=== PATIENT | male | born 1970 | race Caucasian/White ===

== ENCOUNTER 2020-04-14 14:05 | Observation (INO) | payer BC, OTHER ==
[2020-04-14] MEDS ORDERED: SODIUM CHLORIDE 0.9% 1,000 ML IV STA (14:33)
[2020-04-14] MEDS ORDERED: ONDANSETRON 4 MG/2 ML VIAL IVP STA (14:33)
--- NOTE | 2020-04-14 14:33 | ED ---
General Adult HPI - General Chief complaint: Chest Pain Stated complaint: High Blood Pressure Time Seen by Provider: 04/14/20 14:22 Source: patient Mode of arrival: ambulatory Limitations: no limitations - History of Present Illness Initial comments: Dictation was produced using [employer] dictation software. please excuse any grammatical, word or spelling errors. This patient was cared for during a federal and state declared state of emergency secondary to Covid 19 Chief Complaint: 50-year-old male presents today with 2 days of substernal chest pressure elevated blood pressure and diarrhea. History of Present Illness: 50-year-old male for the last 2 days she's been experiencing the affirmation symptoms. He went to the urgent care yesterday and was evaluated. He is told that he was dehydrated and is causing his elevated blood pressure. He had urinalysis performed and was told that he had protein in his urine. Patient states that he does have substernal pressure and epigastric pressure that is worse postprandially. He does experience nausea and diarrhea. His emesis and diarrhea as nonbilious not bloody. He denies any constitutional symptoms. He has history of heart attack. Patient states that the pain does not rate his jaw shoulders or extremities. No associated diaphoresis. He has not been on any recent antibiotics. No recent travel. No concerns of possible food poisoning. The ROS documented in this emergency department record has been reviewed and confirmed by me. Those systems with pertinent positive or negative responses have been documented in the HPI. All other systems are other negative and/or noncontributory. PHYSICAL EXAM: General Impression: Alert and oriented x3, acute distress secondary to nausea HEENT: Normocephalic atraumatic, extra-ocular movements intact, pupils equal and reactive to light bilaterally, mucous membranes moist. Cardiovascular: Heart regular rate and rhythm Chest: Able to complete full sentences, no retractions, no tachypnea Abdomen: abdomen soft, non-tender, non-distended, no organomegaly Musculoskeletal: Pulses present and equal in all extremities, no peripheral edema Motor: no focal deficits noted Neurological: CN II-XII grossly intact, no focal motor or sensory deficits noted Skin: Intact with no visualized rashes Psych: Normal affect and mood ED course: 50-year-old male presents with GI symptoms, nausea vomiting, diarrhea signs upon arrival shows blood pressure 190 10/08/2013, rest of vital signs within acceptable limits. Patient has multiple symptoms involving multiple organs. He does not describe chest symptoms to suggest dissection. Denies that the pain as sharp radiating to his extremities. As I have any focal neurologic deficits of the extremities or strokelike symptoms. States that it's pressure in the substernal epigastric area without any onset of diaphoresis. He also has accompanying diarrhea and nausea. His EKGs benign does not show any signs of infarction or ischemia.He is given a GI cocktail with slight improvement of his symptoms. Laboratory evaluation obtained. CBC unremarkable. Coag panel is negative. Metabolic panel shows no acute processes. Urinalysis shows no acute processes. First troponin is negative. Patient observed in the emergency Department with slight improvement of his substernal symptoms. Still continues to be hypertensive. Disposition options were discussed with patient. He is agreeable for admission to cardiac labs for serial troponins and cardiology consultation. At this point patient's not having any symptoms of hypertensive emergency. Given 1 dose of labetalol EKG interpretation: Ventricular rate 73, normal sinus rhythm,. Interval 156, QRS 108, QTC 407. No SD prolongation, no QTC prolongation, no ST or T-wave changes noted. EKG compared to 06/04/2015 showing no changes. Overall, this EKG is unremarkable - Related Data Home Medications Medication Instructions Recorded Confirmed Cyclobenzaprine [Flexeril] 10 mg PO TID PRN 06/03/15 04/14/20 metFORMIN HCL 1,000 mg PO BID 06/03/15 04/14/20 Cholecalciferol [Vitamin D3 (25 1,000 unit PO DAILY 04/14/20 04/14/20 Mcg = 1000 Iu)] Fenofibrate Nanocrystallized 145 mg PO HS 04/14/20 04/14/20 [Fenofibrate] HYDROcodone/APAP 7.5-325MG [[place] 1 tab PO TID PRN 04/14/20 04/14/20 7.5-325] Losartan Potassium [Cozaar] 100 mg PO DAILY 04/14/20 04/14/20 Magnesium Oxide [Magox 400] 400 mg PO DAILY 04/14/20 04/14/20 Simvastatin [Zocor] 20 mg PO HS 04/14/20 04/14/20 Previous Rx's Medication Instructions Recorded Nitroglycerin Sl Tabs [Nitrostat] 0.4 mg SUBLINGUAL Q5M PRN #30 tab 06/06/15 Allergies Allergy/AdvReac Type Severity Reaction Status Date / Time aspartame Allergy Unknown Verified 04/14/20 16:10 Sulfa (Sulfonamide Allergy Nausea Verified 04/14/20 16:10 Antibiotics) Review of Systems ROS Statement: Those systems with pertinent positive or pertinent negative responses have been documented in the HPI. ROS Other: All systems not noted in ROS Statement are negative. 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 OTHER PAST SX HX INCLUDES: tendon REPAIRS X5 RT BICEP, LT 3RD AND 5TH DIGIT LT HAND, LT GREAT TOE, BENIGN TUMOR REMOVED RT submandibular area Past Anesthesia/Blood Transfusion Reactions: No Reported Reaction Past Psychological History: No Psychological Hx Reported Smoking Status: Current some day smoker Past Alcohol Use History: None Reported Past Drug Use History: None Reported - Past Family History Father Family Medical History: Diabetes Mellitus, Hypertension Mother Family Medical History: Diabetes Mellitus, Hypertension Brother(s) Family Medical History: Myocardial Infarction ([place]) ( at the age 51) Additional Family Medical History / Comment(s): HAD [place] AT AGE 52 General Exam Limitations: no limitations Course Vital Signs 04/14/20 04/14/20 14:14 16:11 Temperature 99.2 F 98.3 F Pulse Rate 83 72 Respiratory 18 18 Rate Blood Pressure 194/114 167/85 O2 Sat by Pulse 100 97 Oximetry Medical Decision Making - Lab Data Result diagrams: 04/14/20 14:42 04/14/20 14:42 Lab Results 04/14/20 04/14/20 04/14/20 Range/Units 14:42 14:42 14:42 WBC 6.7 (3.8-10.6) k/uL RBC 5.60 (4.30-5.90) m/uL Hgb 17.5 (13.0-17.5) gm/dL Hct 50.9 (39.0-53.0) % MCV 91.0 (80.0-100.0) fL MCH 31.2 (25.0-35.0) pg MCHC 34.3 (31.0-37.0) g/dL RDW 12.8 (11.5-15.5) % Plt Count 165 (150-450) k/uL Neutrophils % 57 % Lymphocytes % 30 % Monocytes % 7 % Eosinophils % 3 % Basophils % 2 % Neutrophils # 3.8 (1.3-7.7) k/uL Lymphocytes # 2.0 (1.0-4.8) k/uL Monocytes # 0.5 (0-1.0) k/uL Eosinophils # 0.2 (0-0.7) k/uL Basophils # 0.1 (0-0.2) k/uL PT 9.7 (9.0-12.0) sec INR 0.9 (<1.2) APTT 22.6 (22.0-30.0) sec Sodium 134 L (137-145) mmol/L Potassium 4.3 (3.5-5.1) mmol/L Chloride 103 (98-107) mmol/L Carbon Dioxide 21 L (22-30) mmol/L Anion Gap 10 mmol/L BUN 20 (9-20) mg/dL Creatinine 1.08 (0.66-1.25) mg/dL Est GFR (CKD-EPI)AfAm >90 (>60 ml/min/1.73 sqM) Est GFR (CKD-EPI)NonAf 78 (>60 ml/min/1.73 sqM) Glucose 209 H (74-99) mg/dL Calcium 10.5 H (8.4-10.2) mg/dL Magnesium 1.5 L (1.6-2.3) mg/dL Total Bilirubin 0.6 (0.2-1.3) mg/dL AST 40 (17-59) U/L ALT 42 (4-49) U/L Alkaline Phosphatase 49 (38-126) U/L Troponin I (0.000-0.034) ng/mL Total Protein 7.9 (6.3-8.2) g/dL Albumin 4.9 (3.5-5.0) g/dL Lipase 250 (23-300) U/L Urine Color Urine Appearance (Clear) Urine pH (5.0-8.0) Ur Specific [place] (1.001-1.035) Urine Protein (Negative) Urine Glucose (UA) (Negative) Urine Ketones (Negative) Urine Blood (Negative) Urine Nitrite (Negative) Urine Bilirubin (Negative) Urine Urobilinogen (<2.0) mg/dL Ur Leukocyte Esterase (Negative) Urine RBC (0-5) /hpf Urine WBC (0-5) /hpf 04/14/20 04/14/20 Range/Units 14:42 16:11 WBC (3.8-10.6) k/uL RBC (4.30-5.90) m/uL Hgb (13.0-17.5) gm/dL Hct (39.0-53.0) % MCV (80.0-100.0) fL MCH (25.0-35.0) pg MCHC (31.0-37.0) g/dL RDW (11.5-15.5) % Plt Count (150-450) k/uL Neutrophils % % Lymphocytes % % Monocytes % % Eosinophils % % Basophils % % Neutrophils # (1.3-7.7) k/uL Lymphocytes # (1.0-4.8) k/uL Monocytes # (0-1.0) k/uL Eosinophils # (0-0.7) k/uL Basophils # (0-0.2) k/uL PT (9.0-12.0) sec INR (<1.2) APTT (22.0-30.0) sec Sodium (137-145) mmol/L Potassium (3.5-5.1) mmol/L Chloride (98-107) mmol/L Carbon Dioxide (22-30) mmol/L Anion Gap mmol/L BUN (9-20) mg/dL Creatinine (0.66-1.25) mg/dL Est GFR (CKD-EPI)AfAm (>60 ml/min/1.73 sqM) Est GFR (CKD-EPI)NonAf (>60 ml/min/1.73 sqM) Glucose (74-99) mg/dL Calcium (8.4-10.2) mg/dL Magnesium (1.6-2.3) mg/dL Total Bilirubin (0.2-1.3) mg/dL AST (17-59) U/L ALT (4-49) U/L Alkaline Phosphatase (38-126) U/L Troponin I <0.012 (0.000-0.034) ng/mL Total Protein (6.3-8.2) g/dL Albumin (3.5-5.0) g/dL Lipase (23-300) U/L Urine Color Yellow Urine Appearance Clear (Clear) Urine pH 6.5 (5.0-8.0) Ur Specific [place] 1.016 (1.001-1.035) Urine Protein 2+ H (Negative) Urine Glucose (UA) Trace H (Negative) Urine Ketones Negative (Negative) Urine Blood Negative (Negative) Urine Nitrite Negative (Negative) Urine Bilirubin Negative (Negative) Urine Urobilinogen <2.0 (<2.0) mg/dL Ur Leukocyte Esterase Negative (Negative) Urine RBC <1 (0-5) /hpf Urine WBC <1 (0-5) /hpf Disposition Clinical Impression: Chest pain Disposition: ADMITTED IP TO THIS HOSP Condition: Fair Referrals: Chance Ware DO [Primary Care Provider] - 1-2 days Decision Time: 16:31
[2020-04-14 14:57] LABS: Basophils # (A) 0.1 k/uL (0-0.2); Basophils % (A) 2 %; Eosinophils # (A) 0.2 k/uL (0-0.7); Eosinophils % (A) 3 %; HCT 50.9 % (39.0-53.0); HGB 17.5 gm/dL (13.0-17.5); Lymphocytes % (A) 30 %; MCH 31.2 pg (25.0-35.0); MCHC 34.3 g/dL (31.0-37.0); Mean Platelet Volume 9.9; Monocytes # (A) 0.5 k/uL (0-1.0); Monocytes % (A) 7 %; Neutrophils # (A) 3.8 k/uL (1.3-7.7); Neutrophils % (A) 57 %; Platelet Count 165 k/uL (150-450); RDW 12.8 % (11.5-15.5); WBC 6.7 k/uL (3.8-10.6)
[2020-04-14 15:07] LABS: ALT 42 U/L (4-49); AST 40 U/L (17-59); African American GFR (CKD) >90 (>60 ml/min/1.73 sqM); Albumin 4.9 g/dL (3.5-5.0); Alkaline Phosphatase 49 U/L (38-126); Anion Gap 10 mmol/L; Blood Urea Nitrogen 20 mg/dL (9-20); Calcium 10.5 mg/dL (8.4-10.2); Carbon Dioxide 21 mmol/L (22-30); Chloride 103 mmol/L (98-107); Glucose 209 mg/dL (74-99); Magnesium 1.5 mg/dL (1.6-2.3); Non-African American GFR(CKD) 78 (>60 ml/min/1.73 sqM); Potassium 4.3 mmol/L (3.5-5.1); Sodium 134 mmol/L (137-145); Total Bilirubin 0.6 mg/dL (0.2-1.3); Total Protein 7.9 g/dL (6.3-8.2)
[2020-04-14] MEDS ORDERED: MAG HYDROX/AL HYDROX/SIMETH 30 ML, HYOSCYAMINE ELIXIR 10 ML, LIDOCAINE VISCOUS 2% 10 ML PO STA ×3 (15:10)
--- NOTE | 2020-04-14 15:23 | XR ---
EXAMINATION TYPE: XR abdomen acute w cxr DATE OF EXAM: 04/14/2020 CLINICAL HISTORY: Abdominal pain and nausea. Chest pain. TECHNIQUE: Single frontal view of chest is obtained. Supine and upright views of the abdomen are acq uired. COMPARISON: None. FINDINGS: EKG leads are present. The lungs are grossly clear without pleural effusion or pneumothorax. Cardiac silhouette size appears within normal limits. Ectatic thoracic aorta noted. Osseous structures are i ntact. Some paucity of bowel gas. Gas noted in nondistended stomach bubble. Scattered gas seen in nondisten ded small and large bowel loops. Scattered bilateral small pelvic phleboliths. Visualized osseous str uctures are intact. No pneumoperitoneum IMPRESSION: 1. No acute pulmonary process. 2. Overall nonspecific but likely nonobstructive bowel gas pattern.
[2020-04-14 15:30] LABS: INR 0.9 (<1.2); Partial Thromboplastin Time 22.6 sec (22.0-30.0); Prothrombin Time 9.7 sec (9.0-12.0)
[2020-04-14] MEDS ORDERED: MAGNESIUM OXIDE 400 MG TAB PO STA (15:46)
[2020-04-14 16:23] LABS: Appearance,Urine Clear (Clear); Bilirubin,Urine Negative (Negative); Blood,Urine Negative (Negative); Color,Urine Yellow; Glucose,Urine (UA) Trace (Negative); Ketones,Urine Negative (Negative); Leukocyte Esterase,Urine Negative (Negative); Nitrite,Urine Negative (Negative); PH, Urine 6.5 (5.0-8.0); Protein,Urine 2+ (Negative); RBC,Urine <1 /hpf (0-5); Specific Gravity,Urine 1.016 (1.001-1.035); Urobilinogen,Urine <2.0 mg/dL (<2.0); WBC,Urine <1 /hpf (0-5)
[2020-04-14] MEDS ORDERED: LABETALOL 5 MG/ML VIAL MDV IVP STA (16:29)
[2020-04-14] MEDS ORDERED: ASPIRIN 81 MG PO STA (16:31)
[2020-04-14] MEDS ORDERED: cloNIDine HCL 0.1 MG TAB PO STA (17:36)
[2020-04-14] MEDS ORDERED: NITROGLYCERIN SL TABS 0.4 MG TAB SUBLINGUAL PRN (19:35)
[2020-04-14] MEDS ORDERED: CYCLOBENZAPRINE 10 MG TAB PO PRN (19:35)
[2020-04-14] MEDS ORDERED: ENALAPRILAT 1.25 MG/ML 1 ML VIAL IVP PRN (19:39)
--- NOTE | 2020-04-14 19:47 | P.HPIM ---
History of Present Illness H&P Date: 04/14/20 Chief Complaint: Chest pain, urgent hypertension, CAD, type 2 diabetes, hype rlipidemia 50-year-old mildly overweight male one of Dr. Ware patient with past medical history of CAD post PCI and stent placement of the LAD back 2014 who is known to have history of type 2 diabetes, hypertension, hyperlipidemia, chronic kidney disease who developed to have significant elevated blood pressure since Monday did not feel well ended up going to the urgent care on Monday his blood pressure was quite bit high was recommended to go see his primary care where was seen and have his blood pressure tested and was over 190 patient was advised to come to the emergency department was seen today at [facility] with chest tightness and pressure in significantly elevated blood pressure despite clonidine and his home meds his blood pressure did not subtle down patient CK with troponin was normal patient was admitted to the hospital for the above problem. Review of Systems CONSTITUTIONAL: Well-developed no acute respiratory distress. EYES: No icterus sclerae, no conjunctivitis. EARS, NOSE, MOUTH, THROAT, and FACE: No sore throat, lymphadenopathy, carotid bruits or deformity. RESPIRATORY: No SOB cough or wheezes. CARDIOVASCULAR: No CP, Palpitation, PND, Orthopnea, or angina, mild tightness and pressure.. GASTROINTESTINAL: No Abd pain, Nausea or vomiting, no Diarrhea or constipation, No GI Bleed, no distention or masses. GENITOURINARY: Negative for Hematuria or UTI, no kidney stones. INTEGUMENT/BREAST: Negative for any muscular injury with mild osteoarthritis.. HEMATOLOGIC/LYMPHATIC: Negative for bleed or purpura. MUSCULOSKELTAL: Negative for Myalgia or arthralgia. NEURLOGICAL: No LOC, Sz or syncope, blurred vision dizziness or abnormality.. BEHAVIORAL/PSYCH: Negative. ENDOCRINE: Negative. Social history: He smokes half pack a day for last 25 years, no I can't abuse, his work in maintenance at the [employer], his and lives with his . Family history: Patient father is living in his 86 had [place] post CABG, mother is living in her 84 without any major medical problem. Patient has 1 brother was living and well and one child with no major medical problem. Past Medical History Past Medical History: Diabetes Mellitus, Hypertension, Rheumatoid Arthritis (RA) Additional Past Medical History / Comment(s): 06/03/15 STEMI- 1 stent placed. History of Any Multi-Drug Resistant Organisms: None Reported Past Surgical History: Appendectomy Additional Past Surgical History / Comment(s): 06/03/15 HEART CATH WITH STENT TO LAD. OTHER PAST SX HX INCLUDES: tendon REPAIRS X5 RT BICEP, tendon sx 4TH AND 5TH DIGIT LT HAND, tendon sx GREAT TOE, BENIGN TUMOR REMOVED RT submandibular area. Past Anesthesia/Blood Transfusion Reactions: No Reported Reaction Past Psychological History: No Psychological Hx Reported Additional Psychological History / Comment(s): . Smoking Status: Current some day smoker Past Alcohol Use History: None Reported Past Drug Use History: None Reported - Past Family History Father Family Medical History: Diabetes Mellitus, Hypertension Mother Family Medical History: Diabetes Mellitus, Hypertension Brother(s) Family Medical History: Myocardial Infarction ([place]) Additional Family Medical History / Comment(s): HAD [place] AT AGE 52 Medications and Allergies Home Medications Medication Instructions Recorded Confirmed Type Cyclobenzaprine [Flexeril] 10 mg PO TID PRN 06/03/15 04/14/20 History metFORMIN HCL 1,000 mg PO BID 06/03/15 04/14/20 History Nitroglycerin Sl Tabs [Nitrostat] 0.4 mg SUBLINGUAL Q5M PRN #30 tab 06/06/15 04/14/20 Rx Cholecalciferol [Vitamin D3 (25 1,000 unit PO DAILY 04/14/20 04/14/20 History Mcg = 1000 Iu)] Fenofibrate Nanocrystallized 145 mg PO HS 04/14/20 04/14/20 History [Fenofibrate] HYDROcodone/APAP 7.5-325MG [[place] 1 tab PO TID PRN 04/14/20 04/14/20 History 7.5-325] Losartan Potassium [Cozaar] 100 mg PO DAILY 04/14/20 04/14/20 History Magnesium Oxide [Magox 400] 400 mg PO DAILY 04/14/20 04/14/20 History Simvastatin [Zocor] 20 mg PO HS 04/14/20 04/14/20 History Allergies Allergy/AdvReac Type Severity Reaction Status Date / Time aspartame Allergy Unknown Verified 04/14/20 16:10 Sulfa (Sulfonamide Allergy Nausea Verified 04/14/20 16:10 Antibiotics) Physical Exam Vitals: Vital Signs Temp Pulse Pulse Resp BP BP Pulse Ox 04/14/20 18:45 97.8 F 64 16 194/125 97 04/14/20 18:21 64 18 178/92 98 04/14/20 17:41 65 18 192/115 98 04/14/20 17:00 80 18 166/106 04/14/20 16:11 98.3 F 72 18 167/85 97 04/14/20 14:14 99.2 F 83 18 194/114 100 Intake and Output 04/14/20 04/14/20 04/14/20 06:59 14:59 22:59 Other: Weight 115.666 kg 115.666 kg General Appearance: Alert, cooperative, no distress, appears stated age. Significantly overweight Neck HEENT: Supple, no lymphadenopathy, no thyroid enlargement, no carotid bruits. Lungs: Clear to auscultation without crackles or wheezes no rhonchi, no deformity. Chest Wall: Chest wall normal expansion with deep inspiration no tenderness and no deformity was found on exam, no costochondral pain or discomfort. Heart: Regular rate and rhythm, S1, S2 normal, no murmur, rub or gallop. Back: Symmetric, no curvature, ROM normal, no CVA tenderness. Abdomen: Soft, non-tender, bowel sounds active all four quadrants, no masses, no organomegaly. Extremities: Extremities normal, atraumatic, no cyanosis or edema. Pulses: 2+ and symmetric. Skin: Skin color, texture, tugor normal, no rashes or lesions. Neurologic: Alert oriented x3 cranial nerves II through XII intact, no motor deficit, no abnormal balance or gait. Results CBC & Chem 7: 04/14/20 14:42 04/14/20 14:42 Labs: Abnormal Lab Results - Last 24 Hours (Table) 04/14/20 04/14/20 Range/Units 14:42 16:11 Sodium 134 L (137-145) mmol/L Carbon Dioxide 21 L (22-30) mmol/L Glucose 209 H (74-99) mg/dL Calcium 10.5 H (8.4-10.2) mg/dL Magnesium 1.5 L (1.6-2.3) mg/dL Urine Protein 2+ H (Negative) Urine Glucose (UA) Trace H (Negative) Thrombosis Risk Factor Assmnt - DVT/VTE Prophylaxis DVT/VTE Prophylaxis: Mechanical Prophylaxis ordered - Choose All That Apply Any of the Below Risk Factors Present?: Yes Each Factor Represents 1 point: Age 41-60 years, Obesity (BMI >25) Other Risk Factors: No Other congenital or acquired thrombophilia - If yes, enter type in comment: No Thrombosis Risk Factor Assessment Total Risk Factor Score: 2 Thrombosis Risk Factor Assessment Level: Low Risk Assessment and Plan Assessment: 1 atypical chest pain: With known history of heart disease with significant risk factor, patient will be seeing cardiology continue CK with troponin 3 echocardiogram and if any abnormality patient might go for stress test or intervention. 2 noncontrolled urgent hypertension: Will add labetalol 100 mg twice a day hydralazine 25 mg 4 times a day for systolic above 160 Vasotec 2.5 mg every 6 hour for systolic above 160 in the meanwhile continue patient on losartan 100 mg daily patient calcium and magnesium were slightly bit off we will have free cortisol level along with PTH and renal artery ultrasound to exclude the possibility of bilateral renal artery stenosis, pheochromocytoma is not totally excluded urine metanephrine levels can be done. 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 4 type 2 diabetes: Patient is on metformin Accu-Chek with sliding scales c overage and be done. 5 History of rheumatoid arthritis: Patient is not on any medication for it is on [id number] anti-inflammatory agent only. 6 BPH: Watch for any urinary retention. 7 chronic severe neuropathy: Patient again is not using any neuropathy medication for that he is using hydrocodone subtle down his pain. 8 hyperlipidemia: Patient to continue simvastatin and fenofibrate. 9 GI prophylaxis: Patient will be on Pepcid 20 mg daily. 10 DVT prophylaxis: Patient will be on Venodyne boots and knee-high SAY hose.
[2020-04-14 20:26] LABS: Glucose,Whole Blood 241 mg/dL (75-99)
[2020-04-14] MEDS: LABETALOL 100 MG TAB PO SCH (20:48)
[2020-04-14] MEDS: ATORVASTATIN 10 MG TAB PO SCH (20:48)
[2020-04-14] MEDS: FENOFIBRATE 160 MG TAB PO SCH (20:48)
[2020-04-14] MEDS: HYDROcodone/APAP 7.5-325MG 1 EACH TAB PO PRN (22:10)
--- NOTE | 2020-04-15 07:17 | P.CRDCN ---
History of Present Illness Consult date: 04/15/20 Chief complaint: Elevated blood pressure History of present illness: This is a pleasant 48-year-old gentleman who is known to me from before with known history of coronary artery disease and prior stenting of the left anterior descending artery as well as known intermediate disease involving the left circumflex and also diabetes and hypertension and dyslipidemia presented to the hospital not feeling well. The patient symptoms started this past weekend when he noticed that he's been experiencing symptoms of headache. He noticed that his pressure has been elevated and it was about 180 mmHg systolic at home. He was experiencing only symptoms of headache but no dizziness or lightheadedness and no symptoms of chest pain or chest discomfort nor shortness of breath. No syncope. He noticed that lately his pressure has been creeping up. No change in his blood pressure medications he has been taking the same medications which include losartan at 100 mg by mouth daily. He is not on any beta safia but his heart rate has been in the 60s. The patient states clearly that he was compliant with all of his medications including the losartan. In terms off diet he states clearly that he was not following a low sodium diet but he is trying to. He does not seems to exercise on a regular basis. When he presented to the hospital his pressure has been elevated the patient was restarted on his losartan at home dose which is 100 mg by mouth daily and also he was placed on hydralazine when necessary. The pressure continues to be elevated with an average systolic blood pressure between 150-160 mmHg. His systolic blood pressure ideally should be around 130 mmHg giving his history of coronary artery disease as well as history of cardiomyopathy. The EKG showed sinus rhythm with nonspecific ST and T wave abnormalities. The cardiac enzymes were checked and came in to be unremarkable. The rest of the blood work overall came in to be unremarkable. Again the patient did not have no symptoms of chest pain or chest discomfort. Past Medical History Past Medical History: Diabetes Mellitus, Hypertension, Rheumatoid Arthritis (RA) Additional Past Medical History / Comment(s): 06/03/15 STEMI- 1 stent placed. History of Any Multi-Drug Resistant Organisms: None Reported Past Surgical History: Appendectomy Additional Past Surgical History / Comment(s): 06/03/15 HEART CATH WITH STENT TO LAD. OTHER PAST SX HX INCLUDES: tendon REPAIRS X5 RT BICEP, tendon sx 4TH AND 5TH DIGIT LT HAND, tendon sx GREAT TOE, BENIGN TUMOR REMOVED RT submandibular area. Past Anesthesia/Blood Transfusion Reactions: No Reported Reaction Past Psychological History: No Psychological Hx Reported Additional Psychological History / Comment(s): . Smoking Status: Current some day smoker Past Alcohol Use History: None Reported Past Drug Use History: None Reported - Past Family History Father Family Medical History: Diabetes Mellitus, Hypertension Mother Family Medical History: Diabetes Mellitus, Hypertension Brother(s) Family Medical History: Myocardial Infarction (NC) Additional Family Medical History / Comment(s): HAD NC AT AGE 52 Medications and Allergies Home Medications Medication Instructions Recorded Confirmed Type Cyclobenzaprine [Flexeril] 10 mg PO TID PRN 06/03/15 04/14/20 History metFORMIN HCL 1,000 mg PO BID 06/03/15 04/14/20 History Nitroglycerin Sl Tabs [Nitrostat] 0.4 mg SUBLINGUAL Q5M PRN #30 tab 06/06/15 04/14/20 Rx Cholecalciferol [Vitamin D3 (25 1,000 unit PO DAILY 04/14/20 04/14/20 History Mcg = 1000 Iu)] Fenofibrate Nanocrystallized 145 mg PO HS 04/14/20 04/14/20 History [Fenofibrate] HYDROcodone/APAP 7.5-325MG [[place] 1 tab PO TID PRN 04/14/20 04/14/20 History 7.5-325] Losartan Potassium [Cozaar] 100 mg PO DAILY 04/14/20 04/14/20 History Magnesium Oxide [Magox 400] 400 mg PO DAILY 04/14/20 04/14/20 History Simvastatin [Zocor] 20 mg PO HS 04/14/20 04/14/20 History Allergies Allergy/AdvReac Type Severity Reaction Status Date / Time aspartame Allergy Unknown Verified 04/14/20 16:10 Sulfa (Sulfonamide Allergy Nausea Verified 04/14/20 16:10 Antibiotics) Physical Exam Vitals: Vital Signs Temp Pulse Pulse Resp BP BP BP 04/15/20 06:02 157/89 04/15/20 04:10 97.4 F L 65 15 170/110 04/15/20 00:00 135/86 04/14/20 20:18 97.9 F 71 16 163/85 04/14/20 18:45 97.8 F 64 16 194/125 04/14/20 18:21 64 18 178/92 04/14/20 17:41 65 18 192/115 04/14/20 17:00 80 18 166/106 04/14/20 16:11 98.3 F 72 18 167/85 04/14/20 14:14 99.2 F 83 18 194/114 Pulse Ox 04/15/20 06:02 04/15/20 04:10 99 04/15/20 00:00 04/14/20 20:18 97 04/14/20 18:45 97 04/14/20 18:21 98 04/14/20 17:41 98 04/14/20 17:00 04/14/20 16:11 97 04/14/20 14:14 100 Intake and Output 04/14/20 04/15/20 04/15/20 22:59 06:59 14:59 Other: Voiding Method Toilet Toilet # Voids 1 2 Weight 115.666 kg - Constitutional General appearance: no acute distress - Respiratory Respiratory: bilateral: diminished - Cardiovascular Rhythm: regular Heart sounds: normal: S1, S2 Results 04/14/20 14:42 04/14/20 14:42 Cardiac Enzymes 04/14/20 04/14/20 04/14/20 Range/Units 14:42 14:42 17:36 AST 40 (17-59) U/L Troponin I <0.012 <0.012 (0.000-0.034) ng/mL 04/14/20 Range/Units 20:38 AST (17-59) U/L Troponin I <0.012 (0.000-0.034) ng/mL Coagulation 04/14/20 Range/Units 14:42 PT 9.7 (9.0-12.0) sec APTT 22.6 (22.0-30.0) sec CBC 04/14/20 Range/Units 14:42 WBC 6.7 (3.8-10.6) k/uL RBC 5.60 (4.30-5.90) m/uL Hgb 17.5 (13.0-17.5) gm/dL Hct 50.9 (39.0-53.0) % Plt Count 165 (150-450) k/uL Comprehensive Metabolic Panel 04/14/20 Range/Units 14:42 Sodium 134 L (137-145) mmol/L Potassium 4.3 (3.5-5.1) mmol/L Chloride 103 (98-107) mmol/L Carbon Dioxide 21 L (22-30) mmol/L BUN 20 (9-20) mg/dL Creatinine 1.08 (0.66-1.25) mg/dL Glucose 209 H (74-99) mg/dL Calcium 10.5 H (8.4-10.2) mg/dL AST 40 (17-59) U/L ALT 42 (4-49) U/L Alkaline Phosphatase 49 (38-126) U/L Total Protein 7.9 (6.3-8.2) g/dL Albumin 4.9 (3.5-5.0) g/dL Current Medications Generic Name Dose Route Start Last Admin Trade Name Freq PRN Reason Stop Dose Admin Hydrocodone Bitart/Acetaminophen 1 each 04/14/20 19:35 04/14/20 22:10 Hydrocodone/Apap 7.5-325mg 1 Each Tab PO 1 each TID PRN Administration Pain Aspirin 325 mg 04/15/20 09:00 Aspirin 325 Mg Tab PO DAILY [facility] Atorvastatin Calcium 10 mg 04/14/20 21:00 04/14/20 20:48 Atorvastatin 10 Mg Tab PO 10 mg HS VERONIKA Administration Cholecalciferol 1,000 unit 04/15/20 09:00 Cholecalciferol 1,000 Unit Tab PO DAILY [facility] Cyclobenzaprine HCl 10 mg 04/14/20 19:35 Cyclobenzaprine 10 Mg Tab PO TID PRN MUSCLE SPASMS Enalaprilat 2.5 mg 04/14/20 19:39 04/15/20 04:47 Enalaprilat 1.25 Mg/Ml 1 Ml Vial IVP 2.5 mg Q6HR PRN Administration Blood Pressure - High Famotidine 20 mg 04/15/20 09:00 Famotidine 20 Mg Tab PO DAILY [facility] Fenofibrate 160 mg 04/14/20 21:00 04/14/20 20:48 Fenofibrate 160 Mg Tab PO 160 mg HS VERONIKA Administration Hydralazine HCl 25 mg 04/14/20 19:38 Hydralazine Hcl 25 Mg Tab PO QID PRN Blood Pressure - High Labetalol HCl 100 mg 04/14/20 21:00 10/06/20 20:48 Labetalol 100 Mg Tab PO 100 mg BID VERONIKA Administration Losartan Potassium 100 mg 04/15/20 09:00 Losartan 50 Mg Tab PO DAILY VERONIKA Magnesium Oxide 400 mg 04/15/20 09:00 Magnesium Oxide 400 Mg Tab PO DAILY VERONIKA Metformin HCl 1,000 mg 04/15/20 07:30 Metformin 500 Mg Tab PO BID-W/MEALS VERONIKA Nitroglycerin 0.4 mg 04/14/20 19:35 Nitroglycerin Sl Tabs 0.4 Mg Tab SUBLINGUAL Q5M PRN Chest Pain Spironolactone 25 mg 04/15/20 09:00 Spironolactone 25 Mg Tab PO DAILY VERONIKA Intake and Output 04/14/20 04/15/20 04/15/20 22:59 06:59 14:59 Other: Voiding Method Toilet Toilet # Voids 1 2 Weight 115.666 kg 04/14/20 14:42 04/14/20 14:42 Assessment and Plan Assessment: Assessment #1 hypertension urgency #2 coronary artery disease and prior stenting of the LAD #3 known cardiomyopathy was EF between 40-45% #4 diabetes type 2 #5 dyslipidemia Plan #1 continue the current dose of losartan #2 consider adding Aldactone at 25 mg by mouth daily to manage the blood pressure as well as for the cardiomyopathy #3 he was counseled regarding the low sodium diet and the importance of follow a good diet and exercise #4 he states clearly that he was compliant with all of his medications including losartan #6 an echocardiogram was ordered we'll follow-up with that #7 no need for any stress test at this point in view of the asymptomatic state #8 follow-up with the patient Thank you for allowing us participate in his care
[2020-04-15 07:43] LABS: Glucose,Whole Blood 221 mg/dL (75-99)
[2020-04-15 07:48] LABS: Basophils % (A) 1 %; Eosinophils # (A) 0.2 k/uL (0-0.7); Eosinophils % (A) 4 %; HCT 47.6 % (39.0-53.0); Lymphocytes # (A) 2.2 k/uL (1.0-4.8); Lymphocytes % (A) 36 %; MCH 30.9 pg (25.0-35.0); MCHC 33.7 g/dL (31.0-37.0); MCV 91.8 fL (80.0-100.0); Mean Platelet Volume 9.9; Monocytes # (A) 0.4 k/uL (0-1.0); Monocytes % (A) 7 %; Neutrophils # (A) 3.1 k/uL (1.3-7.7); Neutrophils % (A) 51 %; Platelet Count 132 k/uL (150-450); RBC 5.18 m/uL (4.30-5.90); RDW 12.9 % (11.5-15.5); WBC 6.1 k/uL (3.8-10.6)
[2020-04-15 08:02] LABS: ALT 43 U/L (4-49); AST 42 U/L (17-59); African American GFR (CKD) >90 (>60 ml/min/1.73 sqM); Albumin 4.4 g/dL (3.5-5.0); Alkaline Phosphatase 46 U/L (38-126); Anion Gap 8 mmol/L; Blood Urea Nitrogen 18 mg/dL (9-20); Calcium 9.6 mg/dL (8.4-10.2); Carbon Dioxide 27 mmol/L (22-30); Chloride 102 mmol/L (98-107); Cholesterol 171 mg/dL (<200); Glucose 202 mg/dL (74-99); HDL Cholesterol 33 mg/dL (40-60); Non-African American GFR(CKD) 84 (>60 ml/min/1.73 sqM); Potassium 4.6 mmol/L (3.5-5.1); Sodium 137 mmol/L (137-145); Total Bilirubin 0.6 mg/dL (0.2-1.3); Total Protein 7.2 g/dL (6.3-8.2)
[2020-04-15] MEDS: ASPIRIN 325 MG TAB PO SCH (08:30)
[2020-04-15] MEDS: LOSARTAN 50 MG TAB PO SCH (08:30)
[2020-04-15] MEDS: SPIRONOLACTONE 25 MG TAB PO SCH (08:32)
[2020-04-15] MEDS: hydrALAZINE HCL 25 MG TAB PO PRN (08:32)
[2020-04-15] MEDS: FAMOTIDINE 20 MG TAB PO SCH (08:32)
[2020-04-15] MEDS: metFORMIN 500 MG TAB PO SCH ×2 (08:32→17:31)
[2020-04-15] MEDS: CHOLECALCIFEROL 1,000 UNIT TAB PO SCH (08:32)
[2020-04-15] MEDS: LABETALOL 100 MG TAB PO SCH (08:32)
[2020-04-15] MEDS: HYDROcodone/APAP 7.5-325MG 1 EACH TAB PO PRN (08:33)
[2020-04-15] MEDS: MAGNESIUM OXIDE 400 MG TAB PO SCH (08:33)
[2020-04-15 09:02] LABS: Triglycerides 591 mg/dL (<150)
[2020-04-15] MEDS ORDERED: LABETALOL 100 MG TAB PO STA (10:03)
[2020-04-15] MEDS: LABETALOL 200 MG TAB PO SCH ×2 (10:03→21:38)
--- NOTE | 2020-04-15 11:02 | P.PN ---
Subjective Progress Note Date: 04/15/20 HISTORY OF PRESENT ILLNESS 50-year-old mildly overweight male one of Dr. Ware patient with past medical history of CAD post PCI and stent placement of the LAD back 2014 who is known to have history of type 2 diabetes, hypertension, hyperlipidemia, chronic kidney disease who developed to have significant elevated blood pressure since Monday did not feel well ended up going to the urgent care on Monday his blood pressure was quite bit high was recommended to go see his primary care where was seen and have his blood pressure tested and was over 190 patient was advised to come to the emergency department was seen today at [facility] with chest tightness and pressure in significantly elevated blood pressure despite clonidine and his home meds his blood pressure did not subtle down patient CK with troponin was normal patient was admitted to the hospital for the above problem. 04/15: This morning, blood pressure remains elevated 167/122. Labetalol will be increased to 200 mg twice daily. Patient has been afebrile, heart rate 64, pulse ox 98% on room air. Repeat CBC, electrolytes renal function are unremarkable. Blood sugar running between 202 and 241. Troponins have been negative. Liver function tests normal. Cortisol level is pending. Parathyroid hormone intact is 22.2. Metanephrines, TSH, catecholamines, hemoglobin A1c are pending. Renal ultrasound ordered to rule out renal artery stenosis. Anticipate probable discharge tomorrow. Patient is also been started on NovoLog scale today. REVIEW OF SYSTEMS CONSTITUTIONAL: Well-developed no acute respiratory distress. No fever. EYES: No icterus sclerae, no conjunctivitis. EARS, NOSE, MOUTH, THROAT, and FACE: No sore throat, lymphadenopathy, carotid bruits or deformity. RESPIRATORY: No SOB cough or wheezes. CARDIOVASCULAR: No CP, Palpitation, PND, Orthopnea, or angina, mild tightness and pressure.. GASTROINTESTINAL: No Abd pain, Nausea or vomiting, no Diarrhea or constipation, No GI Bleed, no distention or masses. GENITOURINARY: Negative for Hematuria or UTI, no kidney stones. INTEGUMENT/BREAST: Negative for any muscular injury with mild osteoarthritis.. HEMATOLOGIC/LYMPHATIC: Negative for bleed or purpura. MUSCULOSKELTAL: Negative for Myalgia or arthralgia. NEURLOGICAL: No LOC, Sz or syncope, blurred vision dizziness or abnormality.. BEHAVIORAL/PSYCH: Negative. ENDOCRINE: Negative. PHYSICAL EXAMINATION Gen: This is a 50-year-old male in no acute distress. HEENT: Head is atraumatic, normocephalic. Pupils equal, round. Sclerae is anicteric. NECK: Supple. No JVD. No lymphadenopathy. No thyromegaly. LUNGS: Clear to auscultation. No wheezes or rhonchi. No intercostal retractions. HEART: Regular rate and rhythm. No murmur. ABDOMEN: Soft. Bowel sounds are present. No masses. No tenderness. EXTREMITIES: No pedal edema. No calf tenderness. NEUROLOGICAL: Patient is awake, alert and oriented x3. Cranial nerves 2 through 12 are grossly intact. ASSESSMENT AND PLAN 1 atypical chest pain: With known history of heart disease with significant risk factor, patient will be seeing cardiology continue CK with troponin 3 echocardiogram and if any abnormality patient might go for stress test or intervention. 2 noncontrolled urgent hypertension. Labetalol increased to 200 mg twice daily, continue losartan 100 mg daily, amlodipine 5 mg daily. PTH and renal artery ultrasound to exclude the possibility of bilateral renal artery stenosis, pheochromocytoma is not totally excluded urine metanephrine levels can be done. 3 CAD: Post PCI and stent placement, patient has not seen his placing judge in years he is off but beta safia still on statin and ARB continue aspirin patien t be seen cardiology echocardiogram will be done at this time patient will need probably stress test. 4 type 2 diabetes uncontrolled with hyperglycemia: Patient is on metformin Accu- Chek with sliding scales coverage and be done. 5 History of rheumatoid arthritis: Patient is not on any medication for it is on [id number] anti-inflammatory agent only. 6 BPH: Watch for any urinary retention. 7 chronic severe neuropathy: Patient again is not using any neuropathy medication for that he is using hydrocodone subtle down his pain. 8 hyperlipidemia: Patient to continue simvastatin and fenofibrate. 9 GI prophylaxis: Patient will be on Pepcid 20 mg daily. 10 DVT prophylaxis: Patient will be on Venodyne boots and knee-high SAY hose. Discharge plan: home in 24 hours. Impression and plan of care have been directed as dictated by the signing physician. Kirsten Mello nurse practitioner acting as scribe for signing physician. Objective - Vital Signs Vital signs: Vital Signs Temp 97.8 F 04/15/20 07:54 Pulse 64 04/15/20 07:54 Resp 16 04/15/20 07:54 BP 167/122 04/15/20 07:54 Pulse Ox 98 04/15/20 07:54 Intake & Output 04/14/20 04/15/20 04/15/20 18:59 06:59 18:59 Weight 115.666 kg Other: Voiding Method Toilet Toilet # Voids 2 1 - Labs CBC & Chem 7: 04/15/20 07:19 04/15/20 07:19 Labs: Abnormal Lab Results - Last 24 Hours (Table) 04/14/20 04/14/20 04/14/20 Range/Units 14:42 16:11 20:25 Plt Count (150-450) k/uL Sodium 134 L (137-145) mmol/L Carbon Dioxide 21 L (22-30) mmol/L Glucose 209 H (74-99) mg/dL POC Glucose (mg/dL) 241 H (75-99) mg/dL Calcium 10.5 H (8.4-10.2) mg/dL Magnesium 1.5 L (1.6-2.3) mg/dL Triglycerides (<150) mg/dL HDL Cholesterol (40-60) mg/dL Urine Protein 2+ H (Negative) Urine Glucose (UA) Trace H (Negative) 04/15/20 04/15/20 04/15/20 Range/Units 07:19 07:19 07:41 Plt Count 132 L (150-450) k/uL Sodium (137-145) mmol/L Carbon Dioxide (22-30) mmol/L Glucose 202 H (74-99) mg/dL POC Glucose (mg/dL) 221 H (75-99) mg/dL Calcium (8.4-10.2) mg/dL Magnesium (1.6-2.3) mg/dL Triglycerides 591 H (<150) mg/dL HDL Cholesterol 33 L (40-60) mg/dL Urine Protein (Negative) Urine Glucose (UA) (Negative)
[2020-04-15] MEDS: amLODIPine 5 MG TAB PO SCH (11:07)
[2020-04-15 11:59] LABS: Glucose,Whole Blood 197 mg/dL (75-99)
[2020-04-15] MEDS: INSULIN ASPART (NovoLOG) 100 UNIT/ML VIAL SQ SCH ×3 (12:34→21:37)
--- NOTE | 2020-04-15 13:27 | US ---
EXAMINATION TYPE: US renal artery duplex complet DATE OF EXAM: 04/15/2020 COMPARISON: NONE CLINICAL HISTORY: uncontrolled HTN, rule out renal artery stenosis. MEASUREMENTS: RENAL SIZE: Rt Kidney: 13.9 x 6.5 x 6.5 cm Lt Kidney: 13.5 x 4.8 x 6.5 cm RESISTANCE INDEX Right: 0.59 Left: 0.60 RA/AO RATIO (< 3.5 ) Right: 1.4 Left: 1.7 RA VELOCITY ( < 180 cm/s) Right: 124 Left: 156 Proximal aorta not seen due to bowel gas, otherwise within normal limits. Small cyst lower lateral le ft renal measures 0.9 x 0.5 x 0.9 cm. No ultrasound evidence for renal artery stenosis. Good upstroke on segmentals at renal hilum. Low resistive waveforms noted throughout. IMPRESSION: No sonographic evidence to suggest renal artery stenosis at this time.
[2020-04-15 16:54] LABS: Glucose,Whole Blood 201 mg/dL (75-99)
[2020-04-15 18:52] LABS: Hemoglobin A1C 9.7 % (4.0-6.0)
--- NOTE | 2020-04-15 19:19 | ECHOF ---
Referral Reason:lvfunction MEASUREMENTS -------- HEIGHT: 172.7 cm WEIGHT: 115.7 kg BP: 159/99 RVIDd: 3.3 cm (< 3.3) IVSd: 1.4 cm (0.6 - 1.1) LVIDd: 4.8 cm (3.9 - 5.3) LVPWd: 1.3 cm (0.6 - 1.1) IVSs: 1.8 cm LVIDs: 3.4 cm LVPWs: 1.9 cm LA Diam: 3.4 cm (2.7 - 3.8) LAESV Index (A-L): 18.25 ml/m Ao Diam: 3.4 cm (2.0 - 3.7) AV Cusp: 2.2 cm (1.5 - 2.6) MV EXCURSION: 13.189 mm (> 18.000) MV EF SLOPE: 68 mm/s (70 - 150) EPSS: 0.7 cm MV E Shan: 0.67 m/s MV DecT: 238 ms MV A Shan: 1.11 m/s MV E/A Ratio: 0.61 FINDINGS -------- Sinus rhythm. This was a technically adequate study. The left ventricular size is normal. There is moderate concentric left ventricular hypertrophy. O verall left ventricular systolic function is normal with, an EF between 60 - 65 %. The right ventricle is normal in size. Normal LA size by volume 22+/-6 ml/m2. The right atrium is normal in size. Interatrial and interventricular septum intact. The aortic valve is trileaflet and appears structurally normal. The mitral valve is normal. The tricuspid valve appears structurally normal. The pulmonic valve was not well visualized. The aortic root size is normal. IVC Not well visulized. There is no pericardial effusion. CONCLUSIONS -------- 1. The left ventricular size is normal. 2. There is moderate concentric left ventricular hypertrophy. 3. Overall left ventricular systolic function is normal with, an EF between 60 - 65 %. 4. The right ventricle is normal in size. 5. Normal LA size by volume 22+/-6 ml/m2. 6. IVC Not well visulized. 7. There is no pericardial effusion. TEMPLE MARKER: Collette Merino RDCS
[2020-04-15 21:35] LABS: Glucose,Whole Blood 209 mg/dL (75-99)
[2020-04-15] MEDS: FENOFIBRATE 160 MG TAB PO SCH (21:37)
[2020-04-15] MEDS: ATORVASTATIN 10 MG TAB PO SCH (21:38)
[2020-04-16 06:48] LABS: Glucose,Whole Blood 176 mg/dL (75-99)
[2020-04-16] MEDS: INSULIN ASPART (NovoLOG) 100 UNIT/ML VIAL SQ SCH ×4 (06:51→20:19)
[2020-04-16] MEDS: metFORMIN 500 MG TAB PO SCH ×2 (06:51→18:05)
--- NOTE | 2020-04-16 07:43 | P.PN ---
Subjective Progress Note Date: 04/16/20 Principal diagnosis: Hypertension urgency This is a pleasant 50-year-old gentleman was coronary artery disease and prior revascularization as well as diabetes and hypertension and dyslipidemia was admitted to the hospital yesterday was hypertension urgency. He was started on Aldactone. The echocardiogram revealed mildly impaired LV function. The patient did not have any symptoms of chest pain or chest discomfort He was seen today. He remains asymptomatic from the cardiac standpoint. The blood pressure has improved significantly with an average systolic pressure about 140 mmHg. From a cardiovascular standpoint he can be discharged home and he to be seen as an outpatient. Objective - Vital Signs Vital signs: Vital Signs Temp 97.8 F 04/16/20 03:54 Pulse 64 04/16/20 03:54 Resp 16 04/15/20 07:54 BP 145/63 04/16/20 03:54 Pulse Ox 99 04/16/20 03:54 Intake & Output 04/15/20 04/16/20 04/16/20 18:59 06:59 18:59 Intake Total 500 Balance 500 Intake: Oral 500 Other: Voiding Method Toilet Toilet # Voids 1 1 - Constitutional General appearance: Present: no acute distress - Respiratory Respiratory: bilateral: CTA - Cardiovascular Rhythm: regular - Labs CBC & Chem 7: 04/15/20 07:19 04/15/20 07:19 Labs: Abnormal Lab Results - Last 24 Hours (Table) 04/15/20 04/15/20 04/15/20 Range/Units 07:19 07:19 07:19 Plt Count 132 L (150-450) k/uL Glucose 202 H (74-99) mg/dL POC Glucose (mg/dL) (75-99) mg/dL Hemoglobin A1c 9.7 H (4.0-6.0) % Triglycerides 591 H (<150) mg/dL HDL Cholesterol 33 L (40-60) mg/dL 04/15/20 04/15/20 04/15/20 Range/Units 07:41 11:46 16:52 Plt Count (150-450) k/uL Glucose (74-99) mg/dL POC Glucose (mg/dL) 221 H 197 H 201 H (75-99) mg/dL Hemoglobin A1c (4.0-6.0) % Triglycerides (<150) mg/dL HDL Cholesterol (40-60) mg/dL 04/15/20 04/16/20 Range/Units 21:33 06:47 Plt Count (150-450) k/uL Glucose (74-99) mg/dL POC Glucose (mg/dL) 209 H 176 H (75-99) mg/dL Hemoglobin A1c (4.0-6.0) % Triglycerides (<150) mg/dL HDL Cholesterol (40-60) mg/dL Assessment and Plan Assessment: Assessment #1 hypertension urgency #2 coronary artery disease and prior stenting of the LAD #3 known cardiomyopathy was EF between 40-45% #4 diabetes type 2 #5 dyslipidemia Plan #1 continue the current medical regimen including the current dose of Aldactone #2 the patient can be discharged home
--- NOTE | 2020-04-16 08:06 | P.DS ---
Providers Date of admission: 04/14/20 16:31 Expected date of discharge: 04/16/20 Attending physician: Florian Lomas Consults: 04/14/20 16:31 Consult Physician Urgent Consulting Provider: Graciela Vu Consult Reason/Comments: chest pain Do you want consulting provider notified?: Yes Primary care physician: [facility] Course: HISTORY OF PRESENT ILLNESS 50-year-old mildly overweight male one of Dr. Ware patient with past medical history of CAD post PCI and stent placement of the LAD back 2014 who is known to have history of type 2 diabetes, hypertension, hyperlipidemia, chronic kidney disease who developed to have significant elevated blood pressure since Monday did not feel well ended up going to the urgent care on Monday his blood pressure was quite bit high was recommended to go see his primary care where was seen and have his blood pressure tested and was over 190 patient was advised to come to the emergency department was seen today at [facility] with chest tightness and pressure in significantly elevated blood pressure despite clonidine and his home meds his blood pressure did not subtle down patient CK with troponin was normal patient was admitted to the hospital for the above problem. 04/15: This morning, blood pressure remains elevated 167/122. Labetalol will be increased to 200 mg twice daily. Patient has been afebrile, heart rate 64, pulse ox 98% on room air. Repeat CBC, electrolytes renal function are unremarkable. Blood sugar running between 202 and 241. Troponins have been negative. Liver function tests normal. Cortisol level is pending. Parathyroid hormone intact is 22.2. Metanephrines, TSH, catecholamines, hemoglobin A1c are pending. Renal ultrasound ordered to rule out renal artery stenosis. Anticipate probable discharge tomorrow. Patient is also been started on NovoLog scale today. 04/16: Blood pressure readings have improved with current medications. A1C 9.7. Patient advised to meet with DM educator in Dr. Ware's office. Also advised to lose weight. Patient will be started on Farxiga. Blood sugar is running 176-209. TSH 1.860. Patient will be discharged home today. ASSESSMENT AND PLAN 1 atypical chest pain: With known history of heart disease. 2 noncontrolled urgent hypertension. 3 CAD: Post PCI and stent placement. 4 type 2 diabetes uncontrolled with hyperglycemia. 5 History of rheumatoid arthritis. 6 BPH. 7 chronic severe neuropathy. 8 hyperlipidemia. Discharge plan: home Impression and plan of care have been directed as dictated by the signing physician. Kirsten Mello nurse practitioner acting as scribe for signing physician. Patient Condition at Discharge: Good Plan - Discharge Summary Discharge Rx Participant: No New Discharge Prescriptions: New Spironolactone [Aldactone] 25 mg PO DAILY #30 tab Dapagliflozin Propanediol [Farxiga] 5 mg PO DAILY #30 tablet amLODIPine [Norvasc] 5 mg PO DAILY #30 tab Labetalol [Trandate] 200 mg PO BID #60 tab hydrALAZINE HCL [Apresoline] 25 mg PO QID PRN #60 tab PRN Reason: Hypertension Continue Cyclobenzaprine [Flexeril] 10 mg PO TID PRN PRN Reason: MUSCLE SPASMS metFORMIN HCL 1,000 mg PO BID Nitroglycerin Sl Tabs [Nitrostat] 0.4 mg SUBLINGUAL Q5M PRN #30 tab PRN Reason: Chest Pain Magnesium Oxide [Magox 400] 400 mg PO DAILY Cholecalciferol [Vitamin D3 (25 Mcg = 1000 Iu)] 1,000 unit PO DAILY Simvastatin [Zocor] 20 mg PO HS Fenofibrate Nanocrystallized [Fenofibrate] 145 mg PO HS Losartan Potassium [Cozaar] 100 mg PO DAILY HYDROcodone/APAP 7.5-325MG [[place] 7.5-325] 1 tab PO TID PRN PRN Reason: Pain Discharge Medication List Cyclobenzaprine [Flexeril] 10 mg PO TID PRN 06/03/15 [History] metFORMIN HCL 1,000 mg PO BID 06/03/15 [History] Nitroglycerin Sl Tabs [Nitrostat] 0.4 mg SUBLINGUAL Q5M PRN #30 tab 06/06/15 [Rx] Cholecalciferol [Vitamin D3 (25 Mcg = 1000 Iu)] 1,000 unit PO DAILY 04/14/20 [History] Fenofibrate Nanocrystallized [Fenofibrate] 145 mg PO HS 04/14/20 [History] HYDROcodone/APAP 7.5-325MG [[place] 7.5-325] 1 tab PO TID PRN 04/14/20 [History] Losartan Potassium [Cozaar] 100 mg PO DAILY 04/14/20 [History] Magnesium Oxide [Magox 400] 400 mg PO DAILY 04/14/20 [History] Simvastatin [Zocor] 20 mg PO HS 04/14/20 [History] Dapagliflozin Propanediol [Farxiga] 5 mg PO DAILY #30 tablet 04/16/20 [Rx] Labetalol [Trandate] 200 mg PO BID #60 tab 04/16/20 [Rx] Spironolactone [Aldactone] 25 mg PO DAILY #30 tab 04/16/20 [Rx] amLODIPine [Norvasc] 5 mg PO DAILY #30 tab 04/16/20 [Rx] hydrALAZINE HCL [Apresoline] 25 mg PO QID PRN #60 tab 04/16/20 [Rx] Follow up Appointment(s)/Referral(s): Chance Ware DO [Primary Care Provider] - 1 Week Ede Ramirez MD [STAFF PHYSICIAN] - 2 Weeks Discharge Disposition: HOME SELF-CARE
[2020-04-16 08:08] LABS: Glucose,Whole Blood 194 mg/dL (75-99)
[2020-04-16] MEDS: LABETALOL 200 MG TAB PO SCH ×2 (08:21→20:19)
[2020-04-16] MEDS: ASPIRIN 325 MG TAB PO SCH (08:21)
[2020-04-16] MEDS: SPIRONOLACTONE 25 MG TAB PO SCH (08:21)
[2020-04-16] MEDS: amLODIPine 5 MG TAB PO SCH (08:21)
[2020-04-16] MEDS: FAMOTIDINE 20 MG TAB PO SCH (08:21)
[2020-04-16] MEDS: LOSARTAN 50 MG TAB PO SCH (08:21)
[2020-04-16] MEDS: MAGNESIUM OXIDE 400 MG TAB PO SCH (08:21)
[2020-04-16] MEDS: CHOLECALCIFEROL 1,000 UNIT TAB PO SCH (08:21)
[2020-04-16] MEDS: hydrALAZINE HCL 25 MG TAB PO PRN (10:36)
[2020-04-16 10:55] VITALS: BMI 38.7
[2020-04-16] MEDS ORDERED: amLODIPine 5 MG TAB PO STA (12:01)
[2020-04-16] MEDS ORDERED: hydrALAZINE HCL 25 MG TAB PO SCH (12:15)
[2020-04-16 13:00] LABS: Glucose,Whole Blood 223 mg/dL (75-99)
[2020-04-16] MEDS: hydrALAZINE HCL 25 MG TAB PO SCH ×3 (13:23→21:05)
[2020-04-16 18:03] LABS: Glucose,Whole Blood 217 mg/dL (75-99)
[2020-04-16 20:15] LABS: Glucose,Whole Blood 184 mg/dL (75-99)
[2020-04-16] MEDS: FENOFIBRATE 160 MG TAB PO SCH (20:19)
[2020-04-16] MEDS: ATORVASTATIN 10 MG TAB PO SCH (20:19)
[2020-04-16] MEDS: HYDROcodone/APAP 7.5-325MG 1 EACH TAB PO PRN (22:59)
[2020-04-17 07:01] LABS: Glucose,Whole Blood 207 mg/dL (75-99)
[2020-04-17] MEDS: INSULIN ASPART (NovoLOG) 100 UNIT/ML VIAL SQ SCH ×2 (07:05→12:24)
[2020-04-17] MEDS: metFORMIN 500 MG TAB PO SCH (07:05)
[2020-04-17 07:40] VITALS: RESP 16; TEMP 97.9
[2020-04-17] MEDS: SPIRONOLACTONE 25 MG TAB PO SCH (07:50)
[2020-04-17] MEDS: ASPIRIN 325 MG TAB PO SCH (07:50)
[2020-04-17] MEDS: FAMOTIDINE 20 MG TAB PO SCH (07:50)
[2020-04-17] MEDS: MAGNESIUM OXIDE 400 MG TAB PO SCH (07:50)
[2020-04-17] MEDS: hydrALAZINE HCL 25 MG TAB PO SCH (07:50)
[2020-04-17] MEDS: CHOLECALCIFEROL 1,000 UNIT TAB PO SCH (07:51)
[2020-04-17] MEDS: LABETALOL 200 MG TAB PO SCH (07:51)
[2020-04-17] MEDS ORDERED: hydrALAZINE HCL 25 MG TAB PO STA (07:53)
[2020-04-17] MEDS ORDERED: amLODIPine 10 MG TAB PO SCH (09:00)
[2020-04-17] MEDS ORDERED: ASPIRIN 81 MG PO SCH (09:00)
[2020-04-17 09:54] VITALS: BP 149/89; PULSE 73
[2020-04-17] MEDS: LOSARTAN 50 MG TAB PO SCH (09:57)
--- NOTE | 2020-04-17 10:39 | P.PN ---
Subjective Progress Note Date: 04/17/20 This is a pleasant 48-year-old gentleman who is known to me from before with known history of coronary artery disease and prior stenting of the left anterior descending artery as well as known intermediate disease involving the left circumflex and also diabetes and hypertension and dyslipidemia presented to the hospital not feeling well. The patient symptoms started this past weekend when he noticed that he's been experiencing symptoms of headache. He noticed that his pressure has been elevated and it was about 180 mmHg systolic at home. Patient was seen in consultation by Dr. Morrison, he was kept over night last night because of accelerated hypertension. He had medication adjustments made by Dr. Lomas, patient was seen and examined this morning , blood pressure 156/102, heart rate in the 50s to 70s, 98% on room air. Objective - Vital Signs Vital signs: Vital Signs Temp 97.9 F 04/17/20 07:39 Pulse 73 04/17/20 09:53 Resp 16 04/17/20 09:00 BP 149/89 04/17/20 09:53 Pulse Ox 98 04/17/20 03:00 Intake & Output 04/16/20 04/17/20 04/17/20 18:59 06:59 18:59 Intake Total 1470 Balance 1470 Weight 115.666 kg Intake: Oral 1470 Other: Voiding Method Toilet Toilet Toilet # Voids 3 1 1 # Bowel Movements 1 - Exam Gen: This is a 50-year-old male in no acute distress. HEENT: Head is atraumatic, normocephalic. Pupils equal, round. Sclerae is anicteric. NECK: Supple. No JVD. No lymphadenopathy. No thyromegaly. LUNGS: Clear to auscultation. No wheezes or rhonchi. No intercostal retractions. HEART: Regular rate and rhythm. No murmur. ABDOMEN: Soft. Bowel sounds are present. No masses. No tenderness. EXTREMITIES: No pedal edema. No calf tenderness. NEUROLOGICAL: Patient is awake, alert and oriented x3. Cranial nerves 2 through 12 are grossly intact. - Labs CBC & Chem 7: 04/15/20 07:19 04/15/20 07:19 Labs: Abnormal Lab Results - Last 24 Hours (Table) 04/16/20 04/16/20 04/16/20 Range/Units 12:49 18:02 20:13 POC Glucose (mg/dL) 223 H 217 H 184 H (75-99) mg/dL 04/17/20 Range/Units 06:59 POC Glucose (mg/dL) 207 H (75-99) mg/dL Assessment and Plan Plan: Assessment and plan #1 uncontrolled hypertension #2 atypical chest discomfort, troponins negative, EKG did not reveal any significant changes. #3 coronary artery disease with prior stent placement #4 diabetes #5 hyperlipidemia Plan We will increase the hydralazine to a 3 times a day dose. Patient may be able to be discharged home from our perspective. We'll make him a follow-up appointment to see Dr. Morrison in the office post discharge. DNP note has been reviewed, I agree with a documented findings and plan of care. Patient was seen and examined.
[2020-04-17 12:03] LABS: Glucose,Whole Blood 225 mg/dL (75-99)
--- NOTE | 2020-04-17 12:33 | P.PN ---
Subjective Progress Note Date: 04/16/20 HISTORY OF PRESENT ILLNESS 50-year-old mildly overweight male one of Dr. Ware patient with past medical history of CAD post PCI and stent placement of the LAD back 2014 who is known to have history of type 2 diabetes, hypertension, hyperlipidemia, chronic kidney disease who developed to have significant elevated blood pressure since Monday did not feel well ended up going to the urgent care on Monday his blood pressure was quite bit high was recommended to go see his primary care where was seen and have his blood pressure tested and was over 190 patient was advised to come to the emergency department was seen today at [facility] with chest tightness and pressure in significantly elevated blood pressure despite clonidine and his home meds his blood pressure did not subtle down patient CK with troponin was normal patient was admitted to the hospital for the above problem. 04/15: This morning, blood pressure remains elevated 167/122. Labetalol will be increased to 200 mg twice daily. Patient has been afebrile, heart rate 64, pulse ox 98% on room air. Repeat CBC, electrolytes renal function are unremarkable. Blood sugar running between 202 and 241. Troponins have been negative. Liver function tests normal. Cortisol level is pending. Parathyroid hormone intact is 22.2. Metanephrines, TSH, catecholamines, hemoglobin A1c are pending. Renal ultrasound ordered to rule out renal artery stenosis. Anticipate probable discharge tomorrow. Patient is also been started on NovoLog scale today. 04/16: Blood pressure readings have improved with current medications. A1C 9.7. Patient advised to meet with DM educator in Dr. Ware's office. Also advised to lose weight. Patient will be started on Farxiga. Blood sugar is running 176-209. TSH 1.860. Patient was prepared for discharge home however daytime blood pressure readings were extremely high and amlodipine was increased to 10 mg daily, hydralazine was increased to scheduled an discharge was held. REVIEW OF SYSTEMS CONSTITUTIONAL: Well-developed no acute respiratory distress. No fever. EYES: No icterus sclerae, no conjunctivitis. EARS, NOSE, MOUTH, THROAT, and FACE: No sore throat, lymphadenopathy, carotid bruits or deformity. RESPIRATORY: No SOB cough or wheezes. CARDIOVASCULAR: No CP, Palpitation, PND, Orthopnea, or angina, mild tightness and pressure.. GASTROINTESTINAL: No Abd pain, Nausea or vomiting, no Diarrhea or constipation, No GI Bleed, no distention or masses. GENITOURINARY: Negative for Hematuria or UTI, no kidney stones. INTEGUMENT/BREAST: Negative for any muscular injury with mild osteoarthritis.. HEMATOLOGIC/LYMPHATIC: Negative for bleed or purpura. MUSCULOSKELTAL: Negative for Myalgia or arthralgia. NEURLOGICAL: No LOC, Sz or syncope, blurred vision dizziness or abnormality.. BEHAVIORAL/PSYCH: Negative. ENDOCRINE: Negative. PHYSICAL EXAMINATION Gen: This is a 50-year-old male in no acute distress. HEENT: Head is atraumatic, normocephalic. Pupils equal, round. Sclerae is anicteric. NECK: Supple. No JVD. No lymphadenopathy. No thyromegaly. LUNGS: Clear to auscultation. No wheezes or rhonchi. No intercostal retractions. HEART: Regular rate and rhythm. No murmur. ABDOMEN: Soft. Bowel sounds are present. No masses. No tenderness. EXTREMITIES: No pedal edema. No calf tenderness. NEUROLOGICAL: Patient is awake, alert and oriented x3. Cranial nerves 2 through 12 are grossly intact. ASSESSMENT AND PLAN 1 atypical chest pain: With known history of heart disease with significant risk factor, patient will be seeing cardiology continue CK with troponin 3 echocardiogram and if any abnormality patient might go for stress test or intervention. 2 noncontrolled urgent hypertension. Labetalol increased to 200 mg twice daily, continue losartan 100 mg daily, amlodipine increased to 10, hydralazine 25 mg 4 times daily mg daily. PTH and renal artery ultrasound to exclude the possibility of bilateral renal artery stenosis, pheochromocytoma is not totally excluded urine metanephrine levels can be done. 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 4 type 2 diabetes uncontrolled with hyperglycemia: Patient is on metformin Accu-Chek with sliding scales coverage and be done. 5 History of rheumatoid arthritis: Patient is not on any medication for it is on [id number] anti-inflammatory agent only. 6 BPH: Watch for any urinary retention. 7 chronic severe neuropathy: Patient again is not using any neuropathy medication for that he is using hydrocodone subtle down his pain. 8 hyperlipidemia: Patient to continue simvastatin and fenofibrate. 9 GI prophylaxis: Patient will be on Pepcid 20 mg daily. 10 DVT prophylaxis: Patient will be on Venodyne boots and knee-high SYA hose. Discharge plan: home in 24 hours. Impression and plan of care have been directed as dictated by the signing physician. Kirsten Mello nurse practitioner acting as scribe for signing physician. Objective - Vital Signs Vital signs: Vital Signs Temp 97.9 F 04/17/20 07:39 Pulse 58 L 04/17/20 07:39 Resp 16 04/17/20 07:39 BP 165/101 04/17/20 07:39 Pulse Ox 98 04/17/20 03:00 Intake & Output 04/16/20 04/17/20 04/17/20 18:59 06:59 18:59 Intake Total 1470 Balance 1470 Weight 115.666 kg Intake: Oral 1470 Other: Voiding Method Toilet Toilet # Voids 3 1 - Labs CBC & Chem 7: 04/15/20 07:19 04/15/20 07:19 Labs: Abnormal Lab Results - Last 24 Hours (Table) 04/16/20 04/16/20 04/16/20 Range/Units 08:07 12:49 18:02 POC Glucose (mg/dL) 194 H 223 H 217 H (75-99) mg/dL 04/16/20 04/17/20 Range/Units 20:13 06:59 POC Glucose (mg/dL) 184 H 207 H (75-99) mg/dL
[2020-04-17] MEDS ORDERED: hydrALAZINE HCL 50 MG TAB PO SCH ×2 (16:00→21:00)
[2020-04-18] MEDS ORDERED: ASPIRIN 81 MG PO SCH (09:00)
[2020-04-20 12:05] LABS: Metanephrines 24 Hour,Urine 222 ug/day (52-341); Normetanephrine 24 Hour,Urine 573 ug/day (88-444); Total Metanephrines 24 Hour,Ur 795 ug/day (140-785); Urine Creatinine, 24 Hr 2.1 gm/24h (1.0-2.0)
[2020-04-20 12:08] LABS: Dopamine 24 Hr Urine 287 ug/day (65-400); Epinephrine 24 Hr Urine 12 ug/day (0-20); Norepinephrine 24 Hr Urine 70 ug/day (15-80); Total Catecholamines Urine 82 ug/day (15-100); Urine Creatinine,24 Hr 2.1 gm/24h (1.0-2.0)
[2020-04-20 19:37] LABS: Metanephrine, Free 33 pg/mL (< OR = 57); Normetanephrine, Free 93 pg/mL (< OR = 148); Total, Free (MN + NMN) 126 pg/mL (< OR = 205)
== END 2020-04-17 12:29 | disposition home or self-care (01) ==
LOC: EC 14:05 → 3NCARDOBS 16:31
PROVIDERS: ADMIT Internal Medicine Geriatric Medicine; ATTEND Internal Medicine Geriatric Medicine
DX: R07.89 Other chest pain (principal); I16.0 Hypertensive urgency; I25.10 Atherosclerotic heart disease of native coronary artery without angina pectoris; I12.9 Hypertensive chronic kidney disease with stage 1 through stage 4 chronic kidney disease, or unspecified chronic kidney disease; E11.22 Type 2 diabetes mellitus with diabetic chronic kidney disease; N18.9 Chronic kidney disease, unspecified; E11.65 Type 2 diabetes mellitus with hyperglycemia; E11.40 Type 2 diabetes mellitus with diabetic neuropathy, unspecified; I42.9 Cardiomyopathy, unspecified; E78.5 Hyperlipidemia, unspecified; E66.9 Obesity, unspecified; Z68.38 Body mass index [BMI] 38.0-38.9, adult; N40.0 Benign prostatic hyperplasia without lower urinary tract symptoms; M06.9 Rheumatoid arthritis, unspecified; Z95.5 Presence of coronary angioplasty implant and graft; Z79.84 Long term (current) use of oral hypoglycemic drugs; Z79.899 Other long term (current) drug therapy; F17.210 Nicotine dependence, cigarettes, uncomplicated; Z82.49 Family history of ischemic heart disease and other diseases of the circulatory system; I25.2 Old myocardial infarction; Z98.890 Other specified postprocedural states; Z83.3 Family history of diabetes mellitus; Z88.2 Allergy status to sulfonamides; Z91.018 Allergy to other foods
CPT/HCPCS: 93005 ×2; 96361 ×3; 96374; 96375; 99285; 36415; 93306; 83835 ×2; 80061; 80053 ×2; 84443; 82533; 83690; 83735; 84484; 85025 ×2; 85610; 85730; 81001; 82384; 83970; 83036; 74022; 93975; G0378 ×5; J2405

== ENCOUNTER → 2020-08-03 | Outpatient (CLI) | payer BC ==
--- NOTE | 2020-08-03 11:42 | US ---
EXAMINATION TYPE: US gallbladder DATE OF EXAM: 08/03/2020 COMPARISON: NONE CLINICAL HISTORY: 50-year-old male R10.11 right upper quadrant abd pain. Pain, nausea and vomiting. TECHNIQUE: Multiple sonographic images of the right upper quadrant are obtained. FINDINGS: EXAM MEASUREMENTS: Liver Length: 18 cm Gallbladder Wall: .2 cm CBD: .5 cm Right Kidney: 12 x 4.9 x 5.2 cm Pancreas: Obscured by bowel gas Liver: Markedly echogenic and attenuating. This secondarily limits assessment for focal lesions. Gallbladder: No stones seen Evidence for sonographic Ansari's sign: No CBD: wnl Right Kidney: No hydronephrosis. IMPRESSION: 1. Mild hepatomegaly at 18.0 cm but with severe hepatic steatosis which limits assessment for focal l iver lesions. Correlate with LFTs, profile, and patient risk factors. 2. No gallstones or biliary ductal dilatation.
== END | disposition home or self-care (01) ==
LOC: RADUSWWP 09:14
PROVIDERS: ATTEND Family Medicine
DX: K76.0 Fatty (change of) liver, not elsewhere classified (principal)
CPT/HCPCS: 76705

== ENCOUNTER → 2020-08-21 | Outpatient (CLI) | payer BC ==
--- NOTE | 2020-08-21 09:10 | NM ---
EXAMINATION TYPE: NM hepatobiliary w EF DATE OF EXAM: 08/21/2020 COMPARISON: NONE HISTORY: R10.11 Right Upper Quad Pain TECHNIQUE: After the intravenous administration of 5.1 mCi Tc 99m Mebrofenin hepatobiliary scintigrap hy is performed. Immediate images post injection. FINDINGS: There is satisfactory initial accumulation of tracer by the liver. The gallbladder is visualized wit hin 8 minutes. The small bowel activity is noted within 32 minutes. At one hour 8 ounces of oral en sure plus is given to mimic CCK and gallbladder ejection fraction is calculated at 74 %, in the nitish l range. Therefore there is no scintigraphic evidence of cystic or common bile duct obstruction to s uggest acute cholecystitis or gallbladder dyskinesia. IMPRESSION: Exam is within normal limits.
== END | disposition home or self-care (01) ==
LOC: RADNMMAIN 06:53
PROVIDERS: ATTEND Family Medicine
DX: R10.11 Right upper quadrant pain (principal); Z88.2 Allergy status to sulfonamides
CPT/HCPCS: 78226; A9537

== ENCOUNTER → 2020-10-16 | Outpatient (CLI) | payer BC | END | disposition home or self-care (01) | LOC: LABWHC1 13:24 | PROVIDERS: ATTEND Family Medicine | DX: Z20.822 Contact with and (suspected) exposure to COVID-19 (principal) | CPT/HCPCS: U0003; C9803; U0005 ==

== ENCOUNTER → 2023-04-29 | Outpatient (CLI) | payer BC ==
[2023-04-29 14:06] LABS: HCT 39.8 % (39.6-50.0); HGB 13.3 d/dL (13.0-17.0); MCH 30.5 pg (27.0-32.0); MCHC 33.4 d/dL (32.0-37.0); MCV 91.3 FL (80.0-97.0); Mean Platelet Volume 12.8 FL (9.5-12.2); NRBC Per 100 WBC 0 X 10*3/uL (0.00-0.01); Platelet Count 122 X 10*3/uL (140-440); RBC 4.36 X 10*6/uL (4.40-5.60); RDW 12.9 % (11.5-14.5)
[2023-04-29 14:13] LABS: Blood Urea Nitrogen 21.5 mg/dL (9.0-27.0); Chloride 101 mmol/L (96-109); Potassium 4.5 mmol/L (3.5-5.5); Sodium 136 mmol/L (135-145)
== END | disposition home or self-care (01) ==
LOC: LABPAT 09:04
PROVIDERS: ATTEND Internal Medicine Interventional Cardiology
DX: Z01.812 Encounter for preprocedural laboratory examination (principal); R07.9 Chest pain, unspecified
CPT/HCPCS: 80051; 82565; 84520; 85027

== ENCOUNTER 2023-05-02 09:48 | Day surgery (SDC) | payer BC ==
[2023-04-27 16:07] VITALS: BMI 35.4
[~2023-05-02 09:48] MED LIST: ALPRAZolam 0.25 MG TAB PO PRN; ALPRAZolam 0.5 MG TAB PO PRN; ASPIRIN 325 MG TAB PO STA; ATORVASTATIN 80 MG TAB PO STA; HEPARIN SODIUM,PORCINE (1 ML) 2,500 UNIT in SODIUM CHLORIDE 0.9% 250 ML IRRIGATION PRN; HEPARIN SODIUM,PORCINE 10,000 UNIT in SODIUM CHLORIDE 0.9% 1,000 ML IRRIGATION PRN; NITROGLYCERIN SL TABS 0.4 MG TAB SUBLINGUAL PRN
[2023-05-02] MEDS ORDERED: SODIUM CHLORIDE 0.9% 1,000 ML IV ONE (10:03)
[2023-05-02 10:15] LABS: Glucose,Whole Blood 195 mg/dL (70-110)
[2023-05-02] MEDS ORDERED: fentaNYL (PF) 50 MCG/ML 2 ML AMP ONE (10:31)
[2023-05-02] MEDS ORDERED: VERAPAMIL 2.5 MG/ML 2 ML AMP ONE (10:31)
[2023-05-02] MEDS ORDERED: HEPARIN SODIUM 1,000 UN/ML (10ML VL) ONE (10:31)
[2023-05-02] MEDS ORDERED: MIDAZOLAM 2 MG/2 ML VIAL IVP ONE (10:48)
[2023-05-02] MEDS ORDERED: LIDOCAINE 1% INJ 10MG/ML (20 ML MDV) SQ ONE (10:49)
[2023-05-02] MEDS ORDERED: LIDOCAINE 1% INJ 10MG/ML (20 ML MDV) ONE (10:51)
[2023-05-02] MEDS ORDERED: VERAPAMIL SYRINGE (5 MG/10 ML) INTRAARTER ONE (10:53)
[2023-05-02] MEDS: HEPARIN SODIUM 1,000 UN/ML (10ML VL) IVP ONE ×2 (10:55→11:08)
[2023-05-02] MEDS ORDERED: PRASUGREL 10 MG TAB ONE ×2 (11:18)
[2023-05-02] MEDS ORDERED: PRASUGREL 10 MG TAB PO ONE (11:20)
[2023-05-02] MEDS ORDERED: NITROGLYCERIN 1000MCG/10ML SYRINGE INTRAARTER ONE (11:21)
[2023-05-02] MEDS ORDERED: IOPAMIDOL-370 100ML BTL INJ ONE ×2 (11:25→11:45)
[2023-05-02] MEDS ORDERED: fentaNYL (PF) 50 MCG/ML 2 ML AMP IVP ONE (11:37)
[2023-05-02] MEDS ORDERED: HEPARIN SODIUM 1,000 UN/ML (10ML VL) IVP ONE (11:44)
[2023-05-02] MEDS ORDERED: RX INFO: IV CONTRAST WAS GIVEN 1 EACH MISC MISCELLANE PRN (11:52)
[2023-05-02] MEDS ORDERED: NITROGLYCERIN SL TABS 0.4 MG TAB SUBLINGUAL PRN (11:52)
[2023-05-02] MEDS ORDERED: CYCLOBENZAPRINE 10 MG TAB PO PRN (11:52)
[2023-05-02] MEDS ORDERED: MAG HYDROX/AL HYDROX/SIMETH 30 ML CUP PO PRN (11:52)
[2023-05-02] MEDS ORDERED: ATROPINE SULFATE 0.1 MG/ML 10ML SYRINGE IV PRN (11:52)
[2023-05-02] MEDS ORDERED: HYDROcodone/APAP 7.5-325MG 1 EACH TAB PO PRN (11:52)
[2023-05-02] MEDS ORDERED: ZOLPIDEM 5 MG TAB PO PRN (11:52)
[2023-05-02] MEDS ORDERED: SODIUM CHLORIDE 0.9% 1,000 ML in EMPTY BAG 1 BAG IV SCH (12:00)
--- NOTE | 2023-05-02 12:01 | P.PCN ---
Date of Procedure: 05/02/23 Operative Findings: CARDIAC CATHETERIZATION AND PERCUTANEOUS CORONARY INTERVENTION PERFORMING PHYSICIAN: Ede Ramirez MD, [facility] PROCEDURE PERFORMED: 1. Selective right and left coronary angiogram 2. Left heart catheterization 3. Successful stenting of distal LCx using 3.25 x 18 mm Xience MAVIS with an excellent angiographic results 4. Successful stenting of the OM 2 using a 3.5 x 12 mm Xience MAVIS with an excellent angiographic results 5. Ultrasound-guided access of the right radial artery INDICATION: Chest discomfort and shortness of breath and this 53-year-old gentleman who underwent myocardial perfusion imaging stress test and that revealed an inferior ischemia. He is known to have CAD with prior stenting of the LAD as well as diabetes and hypertension and dyslipidemia COMPLICATION: None APPROACH: Right radial artery LEVEL OF SEDATION: Moderate with the sedation time off 55 minutes PROCEDURE DESCRIPTION: After obtaining an informed consent the patient was brought to the cardiac director geophysical laboratory. The right radial artery was cannulated using micropuncture technique under ultrasound guidance and the micro-puncture wire passed easily then I placed a 6- Uzbek sheath through the give the patient 5000 use of heparin IV and 2 mg of verapamil and arterial. Selective right and left coronary angiogram performed using JR4 and JL 3.5 catheters. After that left heart catheterization was performed using pigtail catheter. Then I did intervene on the left circumflex coronary system. The procedure was completed was no complication SELECTIVE CORONARY ANGIOGRAM: The right coronary artery: Medium caliber vessel nondominant vessel with critical disease in the midportion Left main: Calcified with mild disease only. Bifurcates into one LCx and LAD The left circumflex: Large caliber vessel and is a dominant vessel. The proximal LCx has mild disease only and tortuous. Gives rise into an OM1 which has mild disease only. The mid left circumflex has mild disease only and gives rises into a no into which has an ostial ulcerated lesion appeared to be in the range of 70%. The circumflex distally appears to be subtotally occluded just before it gives PDA. The left anterior descending artery: Large caliber vessel. The LAD in the proximal portion appears to be stented with mild to moderate in-stent restenosis. The mid and distal LAD appears to be angiographically normal HEMODYNAMICS: The LVEDP was 15 mmHg was no significant gradient across aortic valve PCI OF THE LCx: Anticoagulation was initiated using heparin with continuous ACT monitoring. Subsequently I did engage the left main using CLS 3 guiding catheter. I did wire the PDA branch and crossed the lesion in the left circumflex distally to PD A using a whisper wire. Subsequently I wire the OM 2 using a run-through wire. Balloon angioplasty was performed using 20 by 12 mm balloon before I deployed a 3.25 x 18 mm stent where the stent was positioned in the distal left circumflex under fluoroscopy guidance and deployed under fluoroscopy guidance. After that for the OM 2 I predilated using 3.5 mm balloon before I deployed a 3.5 x 12 mm stent where the stent was positioned under fluoroscopy guidance and deployed under fluoroscopy guidance with final angiogram showed excellent angiographic results and the procedure was completed was no complication CONCLUSION: Intermediate in-stent restenosis involving the proximal LAD. Critical disease involving OM-2 and distal LCx which is a dominant system. I did perform successful stenting of OM to and distal LCx POSTPROCEDURE MANAGEMENT: 1. Dual antiplatelet therapy using aspirin and Effient for at least 6 month 2. Aggressive cholesterol control 3. Follow-up with the patient
[2023-05-02] MEDS: SODIUM CHLORIDE 0.9% 1,000 ML in EMPTY BAG 1 BAG IV SCH ×3 (13:14→20:04)
[2023-05-02] MEDS: LABETALOL 200 MG TAB PO SCH (20:03)
[2023-05-03 04:35] VITALS: RESP 16; TEMP 97.7
[2023-05-03 07:44] VITALS: BP 142/85; PULSE 63
[2023-05-03] MEDS ORDERED: ASPIRIN 325 MG TAB PO SCH (09:00)
[2023-05-03] MEDS ORDERED: LOSARTAN-HCTZ 50-12.5 MG 1 EACH TAB PO SCH (09:00)
[2023-05-03] MEDS ORDERED: amLODIPine 10 MG TAB PO SCH (09:00)
[2023-05-03] MEDS ORDERED: FENOFIBRATE 160 MG TAB PO SCH (09:00)
[2023-05-03] MEDS ORDERED: ATORVASTATIN 10 MG TAB PO SCH (09:00)
[2023-05-03] MEDS ORDERED: PRASUGREL 10 MG TAB PO SCH (09:00)
[2023-05-03] MEDS ORDERED: glipiZIDE 5 MG TAB PO SCH (09:00)
[2023-05-03] MEDS: LABETALOL 200 MG TAB PO SCH (09:12)
--- NOTE | 2023-05-03 10:07 | P.DS ---
Providers Attending physician: Ede Ramirez Consults: 05/02/23 11:53 Consult Physician Routine Consulting Provider: [facility] Consult Reason/Comments: Post Interventional patient Do you want consulting provider notified?: Already Contacted Primary care physician: [facility] Course: The patient is a pleasant 53-year-old gentleman who underwent yesterday successful stenting of the left circumflex coronary artery from right radial approach The patient was seen and evaluated this morning. He is asymptomatic and he is hemodynamically stable. The right radial site is soft and nontender was no bruises. The examination showed regular rhythm with a clear breathing sounds bilaterally and no lower extremity edema and good the right radial site was good pulse The patient is going to be discharged home on dual antiplatelet therapy along with high intensity statin and I will follow-up with the patient next week in the office Plan - Discharge Summary Discharge Rx Participant: No New Discharge Prescriptions: New Prasugrel [Effient] 10 mg PO DAILY #90 tab Atorvastatin [Lipitor] 80 mg PO DAILY #90 tab Continue Cyclobenzaprine [Flexeril] 10 mg PO TID PRN PRN Reason: MUSCLE SPASMS Fenofibrate Nanocrystallized [Fenofibrate] 145 mg PO DAILY HYDROcodone/APAP 7.5-325MG [[place] 7.5-325] 1 tab PO TID PRN PRN Reason: Pain Labetalol [Trandate] 200 mg PO BID #60 tab amLODIPine [Norvasc] 10 mg PO DAILY #30 tablet Aspirin 325 mg PO DAILY Losartan-Hctz 50-12.5 mg [Hyzaar 50-12.5] 1 tab PO DAILY glipiZIDE XL [Glucotrol XL] 10 mg PO DAILY Discontinued metFORMIN HCL [Glucophage] 1,000 mg PO BID Simvastatin [Zocor] 20 mg PO DAILY Discharge Medication List Cyclobenzaprine [Flexeril] 10 mg PO TID PRN 06/03/15 [History] Fenofibrate Nanocrystallized [Fenofibrate] 145 mg PO DAILY 04/14/20 [History] HYDROcodone/APAP 7.5-325MG [[place] 7.5-325] 1 tab PO TID PRN 04/14/20 [History] Labetalol [Trandate] 200 mg PO BID #60 tab 04/16/20 [Rx] amLODIPine [Norvasc] 10 mg PO DAILY #30 tablet 04/16/20 [Rx] Losartan-Hctz 50-12.5 mg [Hyzaar 50-12.5] 1 tab PO DAILY 04/27/23 [History] glipiZIDE XL [Glucotrol XL] 10 mg PO DAILY 04/27/23 [History] Aspirin 325 mg PO DAILY 05/02/23 [History] Atorvastatin [Lipitor] 80 mg PO DAILY #90 tab 05/03/23 [Rx] Prasugrel [Effient] 10 mg PO DAILY #90 tab 05/03/23 [Rx] Follow up Appointment(s)/Referral(s): Ede Ramirez MD [STAFF PHYSICIAN] - 1 Week (OFFICE WILL CALL WITH APPOINTMENT.) Patient Instructions/Handouts: Moderate Sedation (DC), After Radial Heart Catheterization (GEN) Activity/Diet/Wound Care/Special Instructions: No driving for two days Ok to shower tomorrow but no baths, pools, lakes, doing dishes by hand for five days. Signs of infection IE: fever, rash, drainage from puncture site, swelling go to ER/doctor for immediate evaluation. Avoid using right wrist/hand to bend, flex, lift greater than 5 lbs for five days. For Heavy Bleeding of puncture site apply firm direct pressure and return to ER. Do not attempt to drive self. low sodium/low fat diet medications as directed by Cardiologists
[2023-05-03 10:32] LABS: Basophils # (A) 0.06 X 10*3/uL (0.00-0.10); Basophils % (A) 1.1 %; Eosinophils # (A) 0.28 X 10*3/uL (0.04-0.35); Eosinophils % (A) 4.9 %; HCT 41.4 % (39.6-50.0); HGB 14.4 d/dL (13.0-17.0); Lymphocytes # (A) 1.88 X 10*3/uL (0.90-5.00); Lymphocytes % (A) 32.9 %; MCHC 34.8 d/dL (32.0-37.0); Mean Platelet Volume 12.8 FL (9.5-12.2); Monocytes # (A) 0.52 X 10*3/uL (0.20-1.00); Monocytes % (A) 9.1 %; NRBC Per 100 WBC 0 X 10*3/uL (0.00-0.01); Neutrophils # (A) 2.94 X 10*3/uL (1.80-7.70); Neutrophils % (A) 51.5 %; Platelet Count 135 X 10*3/uL (140-440); RBC 4.65 X 10*6/uL (4.40-5.60); RDW 12.8 % (11.5-14.5); WBC 5.71 X 10*3/uL (4.50-10.00)
[2023-05-03 10:57] LABS: Blood Urea Nitrogen 18.9 mg/dL (9.0-27.0); Calcium 10.1 mg/dL (8.7-10.3); Chloride 99 mmol/L (96-109); Glucose 189 mg/dL (70-110); Potassium 4.4 mmol/L (3.5-5.5); Sodium 136 mmol/L (135-145)
== END 2023-05-03 11:43 | disposition home or self-care (01) ==
LOC: CATHCVL 09:48 → 6NMEDSUR 11:45 → CATHCVL 05-03 11:43
PROVIDERS: ATTEND Internal Medicine Interventional Cardiology
DX: I25.10 Atherosclerotic heart disease of native coronary artery without angina pectoris (principal); I10 Essential (primary) hypertension; E78.5 Hyperlipidemia, unspecified; E11.9 Type 2 diabetes mellitus without complications; I25.5 Ischemic cardiomyopathy; F17.200 Nicotine dependence, unspecified, uncomplicated; Z79.899 Other long term (current) drug therapy; Z79.02 Long term (current) use of antithrombotics/antiplatelets; Z79.84 Long term (current) use of oral hypoglycemic drugs; Z79.82 Long term (current) use of aspirin
CPT/HCPCS: 93458; 80048; 85025; C9600; C9601; C1769 ×3; C1887; C1894; C1725 ×2; C1874 ×2; J2250; J2001; J3010; J1644; Q9967; J2305